=== PATIENT | female | born 1975 | race Caucasian/White ===

== ENCOUNTER 2018-01-04 14:10 | Emergency (ER) | payer OTHER ==
[~2018-01-04] VITALS: Ht 170.2 cm; Wt 105.9 kg
[2018-01-04 14:38] LABS: GLUCOSE,POINT OF CARE 265 MG/DL (70-110)
[2018-01-04] MEDS ORDERED: KETOROLAC TROMETHAMINE 30 MG/ML VIAL IM ONE (15:15)
[2018-01-04] MEDS ORDERED: MORPHINE SULFATE 4 MG/ML SYRINGE IM ONE (15:15)
[2018-01-04 15:25] LABS: BASOPHILS % (AUTO) 0.5 % (0.0-2.0); EOSINOPHILS % (AUTO) 4.6 % (1.0-6.0); HEMATOCRIT 38.4 % (36-46); LYMPHOCYTES # (AUTO) 1.9 K/uL (1.0-4.8); LYMPHOCYTES % (AUTO) 29.9 % (22.0-44.0); MEAN CORPUSCULAR HGB CONC 33.8 G/dL (31.0-37.0); MEAN CORPUSCULAR VOLUME 86 fL (80-100); MONOCYTES # (AUTO) 0.4 K/uL (0.1-1.0); MONOCYTES % (AUTO) 6.1 % (2.0-9.0); NEUTROPHILS # (AUTO) 3.7 K/uL (1.8-7.7); NEUTROPHILS % (AUTO) 58.9 % (40.0-70.0); PLATELET COUNT (AUTO) 178 K/uL (150-450); RED BLOOD CELL COUNT(AUTO) 4.47 MIL/uL (4.00-5.20); RED CELL DISTRIBUTION WIDTH 13.4 % (11.5-14.5)
[2018-01-04 15:37] LABS: CALCIUM, TOTAL 8.9 mg/dL (8.8-10.5); CREATININE 1.28 mg/dL (0.60-1.30); POTASSIUM 3.7 mmol/L (3.5-5.1)
[2018-01-04] MEDS ORDERED: GABAPENTIN 300 MG CAPSULE PO ONE (16:30)
[2018-01-04] MEDS ORDERED: HYDROCODONE/ACETAMINOPHEN 5-325 MG TABLET PO ONE (17:00)
[2018-01-04 17:22] VITALS: BP 141/89
== END 2018-01-04 17:24 | disposition home or self-care (01) ==
LOC: EMS 14:12
DX: E11.40 Type 2 diabetes mellitus with diabetic neuropathy, unspecified (principal); F32.9 Major depressive disorder, single episode, unspecified; E78.00 Pure hypercholesterolemia, unspecified; Z88.2 Allergy status to sulfonamides
CPT/HCPCS: 36415; 80048; 82962; 85025; 96372; 99284; J1885; J2270

== ENCOUNTER 2018-01-14 15:33 | Emergency (ER) | payer OTHER ==
[~2018-01-14] VITALS: Ht 170.2 cm; Wt 105.9 kg
[2018-01-14] MEDS ORDERED: INSLAN SQ (16:08)
[2018-01-14] MEDS ORDERED: MET500 PO (16:08)
[2018-01-14] MEDS ORDERED: INSU100V SQ (16:08)
[2018-01-14] MEDS ORDERED: IBUP-2071 PO (16:08)
[2018-01-14] MEDS ORDERED: ATOR40TA28 PO (16:08)
[2018-01-14] MEDS ORDERED: BUPR75 PO (16:08)
[2018-01-14] MEDS ORDERED: FAMO20 PO (16:08)
[2018-01-14] MEDS ORDERED: DIPH25 PO (16:08)
[2018-01-14] MEDS ORDERED: DULO30CA2 PO (16:08)
[2018-01-14] MEDS ORDERED: BREX1TAB PO (16:08)
[2018-01-14] MEDS ORDERED: ZIPR80CA2 PO (16:08)
[2018-01-14] MEDS ORDERED: GABA-531 PO (16:08)
[2018-01-14 17:33] LABS: APPEARANCE,URINE CLEAR (CLEAR); BILIRUBIN,URINE NEGATIVE (NEGATIVE); GLUCOSE, URINE (UA) 100 mg/dL (NEGATIVE); KETONES,URINE NEGATIVE (NEGATIVE); LEUKOCYTE ESTERASE ,URINE NEGATIVE (NEGATIVE); NITRATE,URINE NEGATIVE (NEGATIVE); OCCULT BLOOD,URINE NEGATIVE (NEGATIVE); PH,URINE 6.5 (5.0-8.0); UROBILINOGEN,URINE 0.2 mg/dL (<=1.0)
[2018-01-14 17:39] LABS: BACTERIA,URINE None Seen /HPF (None Seen); PROTEIN,URINE NEGATIVE (NEGATIVE); RBC,URINE None Seen /HPF (0-2); WBC,URINE None Seen /HPF (0-5)
[2018-01-14] MEDS ORDERED: KETOROLAC TROMETHAMINE 60 MG/2 ML VIAL IM ONE (18:00)
[2018-01-14 18:14] LABS: GLUCOSE,POINT OF CARE 161 MG/DL (70-110)
[2018-01-14 19:06] VITALS: BP 145/94
== END 2018-01-14 19:00 | disposition left against medical advice (07) ==
LOC: EMS 15:33
DX: M54.5 Low back pain (principal); G89.29 Other chronic pain; E11.9 Type 2 diabetes mellitus without complications; E78.00 Pure hypercholesterolemia, unspecified; Z88.2 Allergy status to sulfonamides
CPT/HCPCS: 81001; 82948; 82962; 96372; 99283; J1885